=== PATIENT | male | born 1985 | race Caucasian/White ===

== ENCOUNTER 2020-07-14 10:03 | Emergency (ER) | payer OTHER, SELFPAY ==
--- NOTE | ~2020-07-14 | XR_ITS ---
XR knee LT min 4V 07/14/2020 10:36 Indication: Left knee pain Procedure: 4 views left knee Comparison: No prior studies for comparison. Findings: No fracture, some subluxation or dislocations. Small effusion. No foreign bodies. No signif icant joint space narrowing. Impression: 1: No acute fracture. 2: Small effusion. Reviewed, dictated and finalized at location B. Impression: 1: No acute fracture. 2: Small effusion.
[2020-07-14 10:16] VITALS: BP 134/87; PULSE 82; RESP 16; TEMP 36.4; O2SAT 100
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
== END 2020-07-14 13:06 | disposition home or self-care (01) ==
PROVIDERS: Emergency Provider Emergency Medicine
DX: S83.207A Unspecified tear of unspecified meniscus, current injury, left knee, initial encounter (principal); V86.56XA Driver of dirt bike or motor/cross bike injured in nontraffic accident, initial encounter
CPT/HCPCS: 73564; 99283

== ENCOUNTER 2020-07-29 07:58 | Outpatient (CLI) | payer OTHER, SELFPAY ==
--- NOTE | ~2020-07-29 | MR_ITS ---
EXAMINATION: MR knee LT wo con DATE: 07/29/2020 08:47 INDICATION: Left knee pain TECHNIQUE: Magnetic resonance imaging (MRI) of the left knee was performed without intravenous contra st. Sequences included coronal PD-weighted FSE, coronal PD-weighted FS FSE, sagittal T2-weighted FSE , sagittal PD-weighted FS FSE and axial PD weighted fat saturated FSE. COMPARISON: Left knee radiographs dated 07/14/2020 FINDINGS: Osseous/other: Nondisplaced fracture involving the posterior aspect of the lateral tibial plateau. The fracture nasir ures 2.9 cm medial collateral by 1.6 cm anterior to posteriorly. There is approximately 1 mm maximal depression of the articular cortex at the anterior margin of the fracture. There does appear to be an associated chondral injury with full-thickness cleft of contrast at least along the medial side of t he fracture. There are surrounding marrow edema. There is juxtaposed nondisplaced fracture with curvi linear low signal intensity fracture line with surrounding edema underlying the lateral aspect of the central weightbearing lateral femoral condyle. The fracture measures approximately 11 mm medial to l ateral and 2.3 similar anteroposteriorly. No definitive extension across the articular cortex or asso ciated chondral injury. There is mild edema underlying the anteromedial rim of the medial tibial plat eau without evident fracture line consistent with a bone contusion. Ligaments and tendons: There is thickening and increased signal of the proximal anterior cruciate ligament. There appears be some architectural distortion of the ligament fibers again proximally but with relatively normal parvin earance and course of the more distal ligament. Appearance suspicious for partial tear of the anterom edial bundle of the ligament. The posterior cruciate ligament is normal. There is a tear of the media l collateral ligament which appears thickened with increased signal proximally and with discontinuity which appears to extend across the entire width of the ligament at the level of the surface of the m edial tibial plateau. The fibular collateral ligament is normal. The extensor mechanism is normal. Th e visualized medial and lateral hamstring tendons as well as the iliotibial band are normal. Medial compartment: Medial meniscus is normal. Articular cartilage is normal. Lateral compartment: Lateral meniscus is normal. Articular cartilage is normal aside from the chondral injury with full-th ickness cleft overlying the fracture lines at the posterior aspect of the lateral tibial plateau. Patellofemoral compartment: Deep chondral fissuring with minimal subarticular edema at the medial patellar facet. Trochlear carti carla is normal. Fluid: Moderate-sized left knee joint effusion. No loose osteochondral bodies identified. Likely reactive mi ld soft tissue edema about the knee most prominent in the vicinity of the medial collateral ligament tear and posteriorly at the lateral tibial plateau fracture. IMPRESSION: 1. Complete tear of the medial collateral ligament. 2. Likely partial tear along the anteromedial bundle of the anterior cruciate ligament. Correlate wit h physical exam to assess for degree of residual functional integrity. 3. Impaction fractures, involving the articular cortex with associated chondral fracture at the poste rior lateral tibial plateau and underlying the lateral aspect of the central weightbearing lateral fe moral condyle without definitive cortical disruption. 4. Bone contusion without evident fracture line along the anteromedial rim of the medial tibial plate au. 5. High-grade chondromalacia with deep chondral fissuring and underlying marrow edema at the medial p atellar facet. 6. Likely reactive moderate sized left knee joint effusion. Reviewed, dictated and finalized at location Jimmy Toney
== END 2020-07-29 07:59 | disposition home or self-care (01) ==
DX: S83.412A Sprain of medial collateral ligament of left knee, initial encounter (principal); X58.XXXA Exposure to other specified factors, initial encounter; M25.462 Effusion, left knee
CPT/HCPCS: 73721